=== PATIENT | male | born 1985 | race Caucasian/White ===

== ENCOUNTER 2019-03-05 19:09 | Emergency (ER) | payer BC, OTHER ==
[~2019-03-05] VITALS: Ht 180.3 cm; Wt 88.0 kg
[2019-03-05] MEDS ORDERED: methylPREDNISolone SOD SUCC 125 MG/2ML VIAL IV ONE (20:00)
[2019-03-05] MEDS ORDERED: FAMOTIDINE/PF INJ 20 MG/2 ML VIAL IV ONE ×2 (20:00→20:05)
[2019-03-05] MEDS ORDERED: IV NS 0.9% 1,000 ML BAG IV ONE (20:00)
--- NOTE | 2019-03-05 20:00 | NUR ---
PT BIBSELF C/O GENERALIZED RASH X1 DAY. PT STATES HE STARTED TAKING PREDNISONE AND AZITHROMYCIN. PT AAOX4. RESPIRATIONS EVEN AND UNLABORED. VITAL SIGNS STABLE. SKIN INTACT. NO ACUTE DISTRESS NOTED AT THIS TIME. WILL CONTINUE TO MONITOR
[2019-03-05] MEDS ORDERED: methylPREDNISolone SOD SUCC 125 MG/2ML VIAL ONE (20:05)
[2019-03-05] MEDS ORDERED: LORAZEPAM INJ 2 MG/ML VIAL IV ONE (20:30)
[2019-03-05] MEDS ORDERED: LORAZEPAM INJ 2 MG/ML VIAL ONE (20:33)
--- NOTE | 2019-03-05 21:15 | NUR ---
PT RESTING COMFORTABLY IN BED. NOTICABLE RELIEF FROM RASH AND REDDNESS. VITAL SIGNS STABLE. WILL CONTINUE TO MONITOR
[2019-03-05 21:32] VITALS: BP 137/84
--- NOTE | 2019-03-05 21:32 | NUR ---
Patient discharged to home in stable condition. Written and verbal after care instructions given. Patient verbalizes understanding of instruction.IV removed. Catheter intact and site benign. Pressure and 4x4 applied to site. No bleeding noted.Pt ambulatory with a steady gait. Instructed not to drive, verbalized understanding. Left with
== END 2019-03-05 21:33 | disposition home or self-care (01) ==
LOC: ER 19:15
DX: L50.0 Allergic urticaria (principal); I48.91 Unspecified atrial fibrillation; J45.909 Unspecified asthma, uncomplicated; F41.9 Anxiety disorder, unspecified; Z88.1 Allergy status to other antibiotic agents
CPT/HCPCS: 96374; 96375; 99283; J2060; J2930; J3490; J7030

== ENCOUNTER 2025-04-16 20:14 | Emergency (ER) | payer OTHER ==
[~2025-04-16] VITALS: Ht 180.3 cm; Wt 87.1 kg
--- NOTE | 2025-04-16 21:46 | NUR ---
URINE COLLECTED AND SENT TO LAB
--- NOTE | 2025-04-16 22:10 | NUR ---
IV RAC 22G S/L BLOO COLLCTED AND SENT TO LAB
[2025-04-16] MEDS ORDERED: DICYCLOMINE HCL 10 MG CAPSULE PO ONE (22:18)
[2025-04-16] MEDS ORDERED: ONDANSETRON HCL/PF 4 MG/2 ML VIAL ONE (22:18)
[2025-04-16 22:21] LABS: PLATELET COUNT (AUTO) 242 K/uL (150-450); RED BLOOD CELL COUNT(AUTO) 5.01 MIL/uL (4.5-6.0); RED CELL DISTRIBUTION WIDTH 13.8 % (11.5-15.0); WHITE BLOOD COUNT (AUTO) 5.9 K/uL (4.3-11.0)
[2025-04-16] MEDS: IV NS 0.9% 1,000 ML BAG IV ONE (22:34)
[2025-04-16 22:35] LABS: CALCIUM, SERUM 9.5 mg/dL (8.5-10.1); CREATININE 0.9 mg/dL (0.6-1.3); SODIUM SERUM 141.0 mmol/L (136-145); UREA NITROGEN, BLOOD 11.0 mg/dL (7-18)
[2025-04-16] MEDS: DICYCLOMINE HCL 10 MG CAPSULE PO ONE (22:35)
[2025-04-16] MEDS: ONDANSETRON HCL/PF 4 MG/2 ML VIAL IV ONE (22:35)
[2025-04-16] MEDS ORDERED: PANTOPRAZOLE 40 MG VIAL ONE (22:37)
[2025-04-16 22:39] LABS: ASPARTATE AMINOTRANSFERASE 18.0 U/L (15-37); TOTAL PROTEIN, SERUM 8.0 g/dL (6.4-8.2)
[2025-04-16] MEDS: PANTOPRAZOLE 40 MG VIAL IV ONE (22:39)
[2025-04-16] MEDS ORDERED: DICY10CA37 PO (22:45)
[2025-04-16] MEDS ORDERED: ONDA4TAB5 PO (22:45)
[2025-04-16] MEDS ORDERED: PANT40TA2 PO (22:45)
--- NOTE | 2025-04-16 23:57 | NUR ---
Patient discharged to home in stable condition. Written and verbal after care instructions given. Patient verbalizes understanding of instruction. IV removed. Catheter intact and site benign. Pressure and 4x4 applied to site. No bleeding noted.
[2025-04-17 00:48] VITALS: BP 129/81; TEMP 98.6; O2SAT 99
== END 2025-04-17 00:49 | disposition home or self-care (01) ==
LOC: ER 20:28
DX: A08.4 Viral intestinal infection, unspecified (principal); R10.13 Epigastric pain; J45.909 Unspecified asthma, uncomplicated; I48.91 Unspecified atrial fibrillation; Z79.899 Other long term (current) drug therapy; Z88.0 Allergy status to penicillin; Z88.1 Allergy status to other antibiotic agents
CPT/HCPCS: 99284; 96374; 96361; 96375; 85025; 83690; 36415; 80053; J2405; J7030; J2470